=== PATIENT | female | born 1995 ===

== ENCOUNTER 2021-02-09 14:30 | Outpatient (RCR) | payer OTHER, SELFPAY ==
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
== END 2021-05-11 13:48 ==
LOC: SP 14:30
PROVIDERS: PCP Family Medicine; Referring Provider Family Medicine; Visit Provider Family Medicine
DX: S06.0X0A Concussion without loss of consciousness, initial encounter (principal)
CPT/HCPCS: 92523; 96125; 97129; 97130

== ENCOUNTER 2021-08-23 10:30 | Outpatient (RCR) | payer OTHER, SELFPAY ==
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
--- NOTE | 2021-09-13 13:32 | ST-OP ANOTE ---
Physical, Occupational & Speech Therapy At [facility] Speech Therapy Note 09/13/21: No Show
--- NOTE | 2021-10-04 10:10 | ST-OP ANOTE ---
Physical, Occupational & Speech Therapy At [facility] Speech Therapy Note Pt did not show for appt. JOINT MAKER MACHINE called and left a VM asking the pt to call back to discuss clinic no-show policy.
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
== END 2021-12-22 09:08 ==
LOC: SP 10:30
PROVIDERS: Family Provider Student in an Organized Health Care Education/Training Program; PCP Student in an Organized Health Care Education/Training Program; Referring Provider Student in an Organized Health Care Education/Training Program; Visit Provider Student in an Organized Health Care Education/Training Program
DX: Z87.820 Personal history of traumatic brain injury (principal)
CPT/HCPCS: 92507; 92523; 97129; 97130